=== PATIENT | female | born 1995 | race Caucasian/White ===

== ENCOUNTER 2023-10-15 16:04 | Emergency (ER) | payer SELFPAY ==
[~2023-10-15] VITALS: Ht 162.6 cm; Wt 70.0 kg
[2023-10-15 16:10] VITALS: TEMP 98.3
[2023-10-15 16:28] LABS: BASO % 0.5 % (0.0-2.0); EOS # 0.1 K/mm3 (0.0-0.7); GRAN # 4.8 K/mm3 (1.4-6.5); GRAN % 61.5 % (42.2-75.2); HEMATOCRIT 43.6 % (37.0-47.0); HEMOGLOBIN 14.3 g/dl (12.5-16.0); LYMPH # 2.3 K/mm3 (1.2-3.4); LYMPH % 29.4 % (20.0-51.0); MEAN CELL VOLUME 96 fl (80.0-100.0); MEAN CORPUSCULAR HEMOGLOBIN 31 pg (27-31); MEAN CORPUSCULAR HGB CONC 33 g/dl (33.0-37.0); MEAN PLATELET VOLUME 9.3 fl (7.4-10.4); MONO # 0.6 K/mm3 (0.1-0.6); MONO % 7.2 % (1.7-9.3); PLATELET COUNT 283 K/mm3 (130-400); RED BLOOD COUNT 4.55 M/mm3 (4.10-5.30)
[2023-10-15] MEDS ORDERED: Ketorolac 30 MG/ML VIAL IM ONE (17:15)
[2023-10-15 17:23] VITALS: BP 108/78; PULSE 83
== END 2023-10-15 17:26 | disposition home or self-care (01) ==
LOC: COL.ER 16:04 → EDBD 16:05 → COL.ER 16:05
PROVIDERS: Physician Assistant
DX: O03.9 Complete or unspecified spontaneous abortion without complication (principal)
CPT/HCPCS: J1885